=== PATIENT | female | born 1965 | race Caucasian/White ===

== ENCOUNTER → 2017-04-24 | Outpatient (CLI) | payer OTHER ==
[~2017-04-24] MED LIST: AMOX-556 PO; ASPI-757 PO; AUG875 PO; BLOO-1764 MC; CALC-41 PO; CEPH500C24 PO; CLI150 PO; ERT1P IVPB; FLU45SYR25 IM ONLY; FURO-47 PO; HCTZ25 PO; HYDR-2966 PO; INSU100C10 SQ; INSU100C12 SQ; INSU100I32 SQ; LANI SUBQ; LEVO100T95 PO; LEVO125T85 PO; LEVO175T37 PO; LEVO200T44 PO; LEVO200T50 PO; LEVO75TA73 PO; LISI2.5T60 PO; LISI5TAB25 PO; METO-253 PO; METO-257 PO; METO25TA93 PO; MULT-976 PO; NEED-653 MC; PER PO; PIPE3.3712 IV; POTA-23 PO; POTA10CA40 PO; PREG75CA60 PO; SIMV-49 PO; SIMV-54 PO; SITA1TAB16 PO; SITA1TAB17 PO; SYRI-1525 MC; TRAM-420 PO; VANC1.752 IV; [UNRECOGNIZED DRUG - CODE] PO
[2017-04-24 11:07] LABS: LDL CHOLESTEROL 76 mg/dl
== END ==
LOC: LAB 10:00
PROVIDERS: ATTEND Internal Medicine
DX: E11.8 Type 2 diabetes mellitus with unspecified complications (principal); E78.2 Mixed hyperlipidemia; E11.49 Type 2 diabetes mellitus with other diabetic neurological complication
CPT/HCPCS: 36415; 82040; 82247; 82310; 82374; 82435; 82465; 82565; 82947; 83036; 83718; 84075; 84132; 84155; 84295; 84450; 84460; 84478; 84520

== ENCOUNTER → 2017-04-24 | Outpatient (CLI) | payer OTHER | LOC: LAB 10:31 | PROVIDERS: ATTEND Internal Medicine | DX: Z02.9 Encounter for administrative examinations, unspecified (principal) ==

== ENCOUNTER 2017-05-04 00:37 | Day surgery (SDC) | payer OTHER ==
[~2017-05-04] VITALS: Ht 180.3 cm; Wt 175.1 kg
[2017-05-04 10:58] VITALS: BP 165/83
[2017-05-04] MEDS: OPHTHALMIC PROCEDURE 2 OU PRN ×2 (11:26→11:32)
[2017-05-04] MEDS ORDERED: NORMOSOL R SOLN(*) 1000 ML BAG 1,000 ML IV PRN (11:30)
[2017-05-04] MEDS ORDERED: MIDAZOLAM 2 MG/2 ML VIAL IVP ONE (11:30)
[2017-05-04] MEDS ORDERED: LIDOCAINE/SOD BICARB 8.4% SYR ID ONE (11:30)
[2017-05-04] MEDS ORDERED: OPHTHALMIC PROCEDURE 2 OU PRN (12:30)
[2017-05-04] MEDS ORDERED: OPHTHALMIC PROCEDURE 1 OU PRN (12:30)
[2017-05-04] MEDS ORDERED: MIDAZOLAM 2 MG/2 ML VIAL ONE (12:31)
[2017-05-04] MEDS ORDERED: acetaZOLAMIDE 500 MG CAPCR PO ONE (13:00)
[2017-05-04 13:10] VITALS: BP 142/84
--- NOTE | 2017-05-04 18:20 | FOSTER LEFT EYE CATARACT ---
EVENT DATE: May 04, 2017 SURGEON: Huan Reynoso MD ANESTHESIOLOGIST: Deric Shelby MD ANESTHESIA: MAC PREOPERATIVE DIAGNOSIS Cataract, left eye. POSTOPERATIVE DIAGNOSIS Cataract, left eye. PROCEDURE Phacoemulsification of cataractous lens with implantation of an intraocular lens , left eye. DESCRIPTION OF PROCEDURE The risks and benefits and alternatives were carefully discussed with the patient, and preoperative consent was obtained. The patient was brought to the operating room, after receiving topical anesthetic. The patient was prepped and draped using sterile technique in the usual manner. A stab incision was made and the chamber was inflated with preservative-free lidocaine. DuoVisc was injected to inflate the chamber. A 2.2 mm blade was used to enter the anterior chamber. Utrata forceps were used to tear a circular capsulorrhexis. BSS was used to hydrodissect the nucleus. Phaco tip was introduced and the nucleus was chopped into four quadrants. Each quadrant was removed. The I/A tip was used to remove the cortex. The bag was inflated with ProVisc. The intraocular lens was injected into the capsular bag. The I/A tip was used to remove the ProVisc. The wound was found to be watertight. Vigamox, Nevanac and Maxitrol ointment were placed in the patient's eye. The patient's eye was patched and the patient was taken to the recovery room in stable condition. The patient was examined in the recovery room and found to be stable, prior to release from the hospital. [facility]
== END 2017-05-04 13:35 | disposition short-term general hospital (02) ==
LOC: OR 00:37
PROVIDERS: ATTEND Ophthalmology
DX: H25.22 Age-related cataract, morgagnian type, left eye (principal)
CPT/HCPCS: 36416; 66984; 82948; J2250; V2632

== ENCOUNTER 2017-06-15 01:30 | Day surgery (SDC) | payer OTHER ==
[~2017-06-15] VITALS: Ht 180.3 cm; Wt 173.3 kg
[2017-06-15] MEDS ORDERED: OPHTHALMIC PROCEDURE 1 OD PRN (10:50)
[2017-06-15] MEDS ORDERED: OPHTHALMIC PROCEDURE 2 OD PRN ×2 (10:50)
[2017-06-15] MEDS ORDERED: LIDOCAINE/SOD BICARB 8.4% SYR ID ONE (11:30)
[2017-06-15] MEDS ORDERED: MIDAZOLAM 2 MG/2 ML VIAL IVP PRN (11:30)
[2017-06-15] MEDS ORDERED: NORMOSOL R SOLN(*) 1000 ML BAG 1,000 ML IV PRN (11:30)
[2017-06-15 11:48] VITALS: BP 159/114
[2017-06-15] MEDS ORDERED: acetaZOLAMIDE 500 MG CAPCR PO ONE (12:50)
[2017-06-15 13:50] VITALS: BP 129/68
--- NOTE | 2017-06-15 19:06 | FOSTER RIGHT EYE CATARACT ---
EVENT DATE: June 15, 2017 SURGEON: Huan Reynoso MD ANESTHESIOLOGIST: None. ANESTHESIA: Topical. PREOPERATIVE DIAGNOSIS Cataract, right eye. POSTOPERATIVE DIAGNOSIS Cataract, right eye. PROCEDURE Phacoemulsification of cataractous lens with implantation of an intraocular lens , right eye. DESCRIPTION OF PROCEDURE The risks and benefits and alternatives were carefully discussed with the patient, and preoperative consent was obtained. The patient was brought to the operating room after receiving topical anesthetic. The patient was prepped and draped using sterile technique in the usual manner. A stab incision was made, and the chamber was inflated with preservative-free lidocaine. DuoVisc was injected to inflate the chamber. A 2.2 mm blade was used to enter the anterior chamber. Utrata forceps were used to tear a circular capsulorrhexis. BSS was used to hydrodissect the nucleus. Phaco tip was introduced, and the nucleus was chopped into four quadrants. Each quadrant was removed. The I/A tip was used to remove the cortex. The bag was inflated with ProVisc. The intraocular lens was injected into the capsular bag. The I/A tip was used to remove the ProVisc. The wound was found to be watertight. Vigamox, Nevanac, and Maxitrol ointment were placed in the patient's eye. The patient's eye was patched, and the patient was taken to the recovery room in stable condition. The patient was examined in the recovery room and found to be stable prior to release from the hospital. [facility]
== END 2017-06-15 14:10 | disposition short-term general hospital (02) ==
LOC: OR 01:30
PROVIDERS: ATTEND Ophthalmology
DX: H25.11 Age-related nuclear cataract, right eye (principal)
CPT/HCPCS: 36416; 66984; 82948; V2632

== ENCOUNTER → 2017-08-23 | Outpatient (CLI) | payer OTHER ==
[2017-08-23 09:44] LABS: LDL CHOLESTEROL 73 mg/dl
== END ==
LOC: LAB 09:05
PROVIDERS: ATTEND Internal Medicine
DX: E11.42 Type 2 diabetes mellitus with diabetic polyneuropathy (principal); E78.2 Mixed hyperlipidemia; I10 Essential (primary) hypertension
CPT/HCPCS: 36415; 82040; 82247; 82310; 82374; 82435; 82465; 82565; 82947; 83718; 84075; 84132; 84155; 84295; 84443; 84450; 84460; 84478; 84520

== ENCOUNTER → 2018-01-31 | Outpatient (CLI) | payer OTHER ==
[~2018-01-31] MED LIST changes: +FLU60VIA41 IM; +PIOG1TAB7 PO
[2018-01-31 10:40] LABS: LDL CHOLESTEROL 69 mg/dl
== END ==
LOC: LAB 09:37
PROVIDERS: ATTEND Internal Medicine
DX: Z00.00 Encounter for general adult medical examination without abnormal findings (principal); E78.2 Mixed hyperlipidemia; E11.49 Type 2 diabetes mellitus with other diabetic neurological complication; E03.9 Hypothyroidism, unspecified; I10 Essential (primary) hypertension
CPT/HCPCS: 36415; 82040; 82247; 82310; 82374; 82435; 82465; 82565; 82947; 83036; 83718; 84075; 84132; 84155; 84295; 84443; 84450; 84460; 84478; 84520

== ENCOUNTER → 2018-07-11 | Outpatient (CLI) | payer OTHER ==
[~2018-07-11] MED LIST changes: +ATOR40TA69 PO; +BUPR-472 PO; +CHOL100052 PO; +OMEG-55 PO
[2018-07-11 14:54] LABS: PLATELET COUNT, AUTOMATED 307 K/uL (150-450)
== END ==
LOC: LAB 14:17
PROVIDERS: ATTEND Emergency Medicine
DX: E03.9 Hypothyroidism, unspecified (principal); E11.49 Type 2 diabetes mellitus with other diabetic neurological complication; I10 Essential (primary) hypertension; E78.2 Mixed hyperlipidemia; F32.9 Major depressive disorder, single episode, unspecified; D64.9 Anemia, unspecified
CPT/HCPCS: 36415; 82306; 82310; 82374; 82435; 82565; 82746; 82947; 83036; 84132; 84295; 84443; 84520; 85025

== ENCOUNTER → 2018-07-22 | Outpatient (CLI) | payer OTHER | LOC: LAB 11:38 | PROVIDERS: ATTEND Emergency Medicine | DX: E11.49 Type 2 diabetes mellitus with other diabetic neurological complication (principal); I10 Essential (primary) hypertension | CPT/HCPCS: 36415 ==

== ENCOUNTER → 2018-08-28 | Outpatient (CLI) | payer OTHER ==
[~2018-08-28] MED LIST changes: +BUPR-474 PO; +DULA0.75 SC
== END ==
LOC: LAB 09:09
PROVIDERS: ATTEND Emergency Medicine
DX: E11.9 Type 2 diabetes mellitus without complications (principal); F32.9 Major depressive disorder, single episode, unspecified; E03.9 Hypothyroidism, unspecified; E55.9 Vitamin D deficiency, unspecified
CPT/HCPCS: 36415; 84443

== ENCOUNTER → 2018-11-27 | Outpatient (CLI) | payer OTHER ==
[~2018-11-27] MED LIST changes: +LEVO-3 PO; +LEVO50TA86 PO
== END ==
LOC: AMB 07:11
PROVIDERS: ATTEND Nurse Practitioner
DX: R06.00 Dyspnea, unspecified (principal); R05 Cough
CPT/HCPCS: A0425; A0429

== ENCOUNTER → 2018-11-27 | Outpatient (CLI) | payer OTHER | LOC: AMB 13:11 | PROVIDERS: ATTEND Nurse Practitioner | DX: R06.02 Shortness of breath (principal); C80.1 Malignant (primary) neoplasm, unspecified | CPT/HCPCS: A0425; A0426; A0888 ==